=== PATIENT | male | born 1960 | race Caucasian/White ===

== ENCOUNTER 2019-06-07 12:53 | Inpatient (IN) | payer OTHER ==
[2019-06-07 13:34] VITALS: BMI 43.4
--- NOTE | 2019-06-07 14:49 | HP ---
CIWA Score - Admission Criteria OASAS Guidelines: Admission for Medically Managed Detox: Requires at least one of the followin. CIWA greater than 12 2. Seizures within the past 24 hours 3. Delirium tremens within the past 24 hours 4. Hallucinations within the past 24 hours 5. Acute intervention needed for co occurring medical disorder 6. Acute intervention needed for co occurring psychiatric disorder 7. Severe withdrawal that cannot be handled at a lower level of care (continued vomiting, continued diarrhea, abnormal vital signs) requiring intravenous medication and/or fluids 8. Admitting History and Physical - Admission Chief Complaint: "I was sent here from [facility] for Rehab." History of Present Illness: 58 year old male with history of alcohol dependence, marijuana, crack use disorders. He is being referred to rehab from [facility] after a stay from 05/09/19 till present due to decompensation psychiatrically. He now admits that he was non-compliant with psychiatric medications and that caused him to relapse and start using drugs again. The last date of use of alcohol, crack and marijuuana was 05/09/19. See history from prior hospital. Psych:schizoaffective disorder Meds: See medication reconciliation this was confirmed from prior hospital as adjustments were made there and he was stable on those medications and doses. Patient lives in [facility] but needs structured environment to remain abstinent and gain knowledge to prevent relapse. He also had previous detoxes but has relapsed multiple times. History Source: Patient Limitations to Obtaining History: No Limitations - Past Medical History Psych: Yes: Schizophrenia, Other (schizoaffective disorder) - Past Surgical History Past Surgical History: Yes: None - Advance Directives Advance Directives: No: Living Will, Health Care Proxy, DNR - Smoking History Smoking history: Never smoked Have you smoked in the past 12 months: No - Alcohol/Substance Use Hx Alcohol Use: Yes (used to 1/2 pint on weekends) History of Substance Use: reports: None - Social History Usual Living Arrangement: Yes: Assisted Living Do you think of yourself as: Straight/Heterosexual ADL: Independent Occupation: disabled now psychiatrically History of Recent Travel: No Admission [facility] Allergies/Adverse Reactions: Allergies Allergy/AdvReac Type Severity Reaction Status Date / Time Penicillins Allergy Verified 06/07/19 13:11 - Ebola screening Have you traveled outside of the country in the last 21 days: No Have you had contact with anyone from an Ebola affected area: No Have you been sick,other than usual withdrawal symptoms: No Do you have a fever: No - Review of Systems Constitutional: No Symptoms Reported EENT: reports: No Symptoms Reported Respiratory: reports: No Symptoms reported Cardiac: reports: No Symptoms Reported GI: reports: No Symptoms Reported : reports: No Symptoms Reported Musculoskeletal: reports: Other (right ankle aching and not new complaint. right hip pain on walking is painful) Integumentary: reports: No Symptoms Reported Neuro: reports: No Symptoms reported Endocrine: reports: No Symptoms Reported Hematology: reports: No Symptoms Reported Psychiatric: reports: Judgement Intact, Mood/Affect Appropiate, Orientated x3 Other Systems: Reviewed and Negative Patient History - Patient Medical History Hx Anemia: No Hx Asthma: No Hx Chronic Obstructive Pulmonary Disease (COPD): No Hx Cancer: No Hx Cardiac Disorders: No Hx Congestive Heart Failure: No Hx Hypertension: Yes Hx Hypercholesterolemia: No Hx Pacemaker: No HX Cerebrovascular Accident: No Hx Seizures: No Hx Dementia: No Hx Diabetes: No Hx Gastrointestinal Disorders: No Hx Liver Disease: Yes (fatty liver?) Hx Genitourinary Disorders: No Hx Sexually Transmitted Disorders: No Hx Renal Disease (ESRD): No Hx Thyroid Disease: No Hx Human Immunodeficiency Virus (HIV): No Hx Hepatitis C: No Hx Depression: No Hx Suicide Attempt: No Hx Bipolar Disorder: No Hx Schizophrenia: Yes Other Medical History: sickle cell trait and sleep apnea disorder - Smoking Cessation Smoking history: Never smoked Hx Chewing Tobacco Use: No Initiated information on smoking cessation: No - Substances abused Marijuana/Hashish Substance route: Smoking Frequency: 1-3 times last 30 days Amount used: $10 Age of first use: 18 Date of last use: 05/01/19 Alcohol Substance route: Oral Frequency: Daily Amount used: 1 pint of rum Age of first use: 22 Date of last use: 05/17/19 Crack Substance route: Smoking Frequency: Daily Amount used: $500 Age of first use: 18 Date of last use: 05/17/19 Admission Physical Exam BHS - Vital Signs Vital Signs: Vital Signs - 24 hr 06/07/19 13:10 Temperature 97.7 F Pulse Rate 74 Respiratory 20 Rate Blood Pressure 117/71 - Physical General Appearance: Yes: No Apparent Distress HEENTM: Yes: EOMI, Hearing grossly Normal, Normal ENT Inspection, Normocephalic , Normal Voice, JEREMY, Pharynx Normal, Tm's normal Respiratory: Yes: Chest Non-Tender, Lungs Clear, Normal Breath Sounds, No Respiratory Distress, No Accessory Muscle Use Neck: Yes: No masses,lesions,Nodules, Supple, Trachea in good position Breast: Yes: Within Normal Limits Cardiology: Yes: Regular Rhythm, Regular Rate, S1, S2 Abdominal: Yes: Normal Bowel Sounds, Non Tender, Soft, Protuberent Genitourinary: Yes: Within Normal Limits Back: Yes: Normal Inspection Musculoskeletal: Yes: full range of Motion, Gait Steady, Pelvis Stable Extremities: Yes: Normal Capillary Refill, Normal Inspection, Normal Range of Motion, Non-Tender Neurological: Yes: soil 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 II-XII NML intact, Fully Oriented, Alert, Motor Strength 5/5, Normal Mood/Affect, Normal Response Integumentary: Yes: Normal Color, Warm Lymphatic: Yes: Within Normal Limits - Diagnostic (1) Morbid obesity Current Visit: Yes Status: Acute (2) Hypertension Current Visit: Yes Status: Acute (3) Schizoaffective disorder Current Visit: Yes Status: Acute (4) Arthritis Current Visit: Yes Status: Acute (5) Alcohol use disorder Current Visit: Yes Status: Acute (6) Cannabis use disorder, mild, abuse Current Visit: Yes Status: Acute (7) Cocaine use disorder Current Visit: Yes Status: Acute Cleared for Admission S - Detox or Rehab [facility] Level of Care: Medically Supervised Detox Regimen/Protocol: Not Applicable Claeared for Rehab Admission: Yes Screened but not Admitted - Documentation of Visit Screened but not Admitted: No Breathalyzer - Breathalyzer Breathalyzer: 0 (transfer from other hospital) Urine Drug Screen - Test Device Lot number: [id number] Expiration date: 12/26/20 - Control Is test valid?: Yes - Results Drug screen NEGATIVE: Yes Inpatient Rehab Admission - Rehab Decision to Admit Inpatient rehab admission?: Yes - Initial Determination Are CD services needed?: Yes Free of communicable disease: Yes Not in need of hospitalization: Yes - Rehab Admission Criteria Previous failed treatment: Yes Poor recovery environment: Yes Comorbidities: Yes Lacks judgement: Yes Patient is meeting Inpatient Rehab admission criteria:: Yes
[2019-06-07] MEDS ORDERED: MENTHOL/PHENOL 1 EACH UD MM PRN (15:10)
[2019-06-07] MEDS ORDERED: ALBUTEROL SO4 HFA INHALER IH PRN (15:10)
[2019-06-07] MEDS ORDERED: guaiFENesin 200 MG/10 ML 10 ML UNIT-DOSE CUPS PO PRN (15:10)
[2019-06-07] MEDS ORDERED: IBUPROFEN 400 MG TABLET (FP) PO PRN (15:10)
[2019-06-07] MEDS ORDERED: ACETAMINOPHEN 325 MG TABLET (FP) PO PRN (15:10)
[2019-06-07] MEDS ORDERED: MAGNESIUM CITRATE 300 ML BOTTLE PO PRN (15:10)
[2019-06-07] MEDS ORDERED: MAGNESIUM HYDROX 2400MG/30ML ORAL SUSPENSION 30 ML CUP PO PRN (15:10)
[2019-06-07] MEDS ORDERED: P-EPHED 60MG/TRIPROLIDI 2.5MG TABLET PO PRN (15:10)
[2019-06-07] MEDS ORDERED: MAG HYDROX/AL HYDROX/SIMETH 30 ML UNIT-DOSE CUP PO PRN (15:10)
[2019-06-07] MEDS ORDERED: LOPERAMIDE HCL 2 MG CAPSULE PO PRN (15:10)
[2019-06-07] MEDS ORDERED: HEPARIN NA (PORCINE) 5,000 UNITS/ML 1ML VIAL SQ SCH (15:15)
--- NOTE | 2019-06-07 16:17 | PN ---
[facility] Progress Note Note: Newly admitted patient re: hx of schizoaffective of psych admission to [facility] d/t non-compliance with psych meds, psych consult place and lithium levels ordered. Heparin order clarified with admitting provider re: d/c order.
[2019-06-07] MEDS: THIAMINE HCL 100 MG TABLET (FP) PO SCH (21:05)
[2019-06-07] MEDS: MOMETASONE FUROATE 220 MCG/IH INHALER IH SCH (21:05)
[2019-06-07] MEDS ORDERED: OLANZapine 5 MG TABLET ONE (21:09)
[2019-06-07] MEDS ORDERED: OLANZapine 10 MG TABLET ONE (21:09)
[2019-06-07] MEDS: OLANZAPINE 20 MG, OLANZAPINE 5 MG PO SCH (21:09)
[2019-06-07] MEDS: DOCUSATE SODIUM 100 MG CAPSULE (FP) PO SCH (21:10)
[2019-06-07] MEDS: GABAPENTIN 100 MG CAPSULE PO SCH (21:10)
[2019-06-07] MEDS: DIVALPROEX SODIUM 500 MG TABLET E.C. PO SCH (21:10)
[2019-06-07] MEDS ORDERED: LITHIUM CARBONATE 150 MG CAPSULE PO SCH (22:00)
[2019-06-07] MEDS ORDERED: OLANZAPINE 25 MG PO SCH (22:00)
[2019-06-07] MEDS ORDERED: LITHIUM CARBONATE 300 MG CAPSULE (FP) PO SCH (22:00)
[2019-06-07] MEDS ORDERED: LITHIUM CARBONATE 150 MG CAPSULE PO ONE (22:45)
[2019-06-08] MEDS: DOCUSATE SODIUM 100 MG CAPSULE (FP) PO SCH ×3 (06:27→21:11)
[2019-06-08] MEDS: GABAPENTIN 100 MG CAPSULE PO SCH ×3 (06:27→21:11)
[2019-06-08] MEDS: LITHIUM CARBONATE 300 MG, LITHIUM CARBONATE 150 MG PO SCH ×3 (08:15→21:10)
--- NOTE | 2019-06-08 09:01 | EKG ---
Test Reason : Blood Pressure : / mmHG Vent. Rate : 071 BPM Atrial Rate : 071 BPM P-R Int : 180 ms QRS Dur : 094 ms QT Int : 402 ms P-R-T Axes : 062 031 039 degrees QTc Int : 436 ms NORMAL SINUS RHYTHM NORMAL ECG NO PREVIOUS ECGS AVAILABLE Confirmed by HAMLET TRUJILLO MD ([id number]) on 06/08/2019 9:01:05 AM Referred By: Confirmed By:HAMLET TRUJILLO MD
--- NOTE | 2019-06-08 09:19 | CONSULT ---
[facility] Psychiatric Consult - Data Date of interview: 06/08/19 Admission source: [facility] Identifying data: Patient is a 58 year old single male, without children, unemployed, domiciled, and is supported by SSI/SSD. This is one of multiple admissions for patient. Patient admitted to for alcohol, marijuana, and cocaine dependence. Substance Abuse History: Smoking Cessation. Smoking history: Never smoked. Hx Chewing Tobacco Use: No. Initiated information on smoking cessation: No. - Substances abused. Marijuana/Hashish. Substance route: Smoking. Frequency : 1-3 times last 30 days. Amount used: $10. Age of first use: 18. Date of last use: 05/01/19. Alcohol. Substance route: Oral. Frequency: Daily. Amount used: 1 pint of rum. Age of first use: 22. Date of last use: 05/17/19. Crack. Substance route: Smoking. Frequency: Daily. Amount used: $500. Age of first use: 18. Date of last use: 05/17/19 Medical History: hypertension, sickle cell trait, sleep apnea disorder Psychiatric History: Patient's first psychiatric contact was in 1978 after he became hostile in high school secondary to smoking marijuana. He was admitted to [facility] for 2 months diagnosed with schizoaffective disorder and prescribed haldol, thorazine and other psychotropic agents. Mr. Aguiar reports history of multiple hospitalizations at various institutions including but not limited to [facility], [facility], [facility] and facilities in [place], [place]. Mr. Aguiar reports being admitted for four years at [facility] from [id number] (discharged in March of 2019 ). Two weeks after his admission he decompensated and was admitted to [facility]. Patient unable to recall history of psychotic symptoms. Only able to recall mood instability and hostile behavior. As per paper work from [facility] patient presented as disorganized and exhibiting incoherent speech (word salad), and visual hallucinations of seeing "profet Mohammad". 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 Patient was discharged from [facility] with a prescription of Zyprexa 25mg HS + Depakote 1500mg BID + [place] 450mg TID. Diagnosis of schizoaffective disorder bioplar type. Mr. Aguiar reports a poor history of compliance to outpatient psychiatric treatment which has resulted in multiple psychiatric hospitalizations. Patient is not currently receiving outpatient psychiatric care. [facility] from [facility] but instead was admitted to rehab at current facility. He is now seeking placement at a [facility] upon discharge. Patient denies history of suicide attempt but does report history of self mutilation behavior by cutting as a way to seek attention. At present patient denies suicidal/homicidal ideation, auditory/visual hallucination. No psychosis noted. Physical/Sexual Abuse/Trauma History: denies. Mental Status Exam - Mental Status Exam Alert and Oriented to: Time, Place, Person Cognitive Function: Good Patient Appearance: Well Groomed Mood: Withdrawn Affect: Appropriate Patient Behavior: Fatigued, Appropriate, Cooperative Speech Pattern: Appropriate Voice Loudness: Normal Thought Process: Goal Oriented Thought Disorder: Not Present Hallucinations: Denies Suicidal Ideation: Denies Homicidal Ideation: Denies Insight/Judgement: Poor Sleep: Fair Appetite: Fair Muscle strength/Tone: Normal Gait/Station: Normal Psychiatric Findings - Problem List ([place] 1, 2,3) (1) Alcohol use disorder Current Visit: Yes Status: Acute (2) Cannabis use disorder, mild, abuse Current Visit: Yes Status: Acute (3) Cocaine use disorder Current Visit: Yes Status: Acute (4) Schizoaffective disorder Current Visit: Yes Status: Chronic Qualifiers: Schizoaffective disorder type: bipolar Qualified Code(s): F25.0 - Schizoaffective disorder, bipolar type - Initial Treatment Plan Initial Treatment Plan: Psychoeducation provided. Rehab in progress. Will continue medications ordered by Dr. Gaitan: Zyprexa 25mg HS + Depakote 1500mg BID + [place] 450mg TID + Gabapentin 100mg TID. Lithum and depakote level ordered. Results pending. Benefits and side effects discussed. Verbal consent given.
[2019-06-08] MEDS: PRENATAL VITAMINS W/ FOLIC ACID TABLET (FP) PO SCH (09:58)
[2019-06-08] MEDS: MOMETASONE FUROATE 220 MCG/IH INHALER IH SCH ×2 (09:58→21:10)
[2019-06-08] MEDS: DIVALPROEX SODIUM 500 MG TABLET E.C. PO SCH ×2 (09:58→21:11)
[2019-06-08 10:08] LABS: HEMATOCRIT 36.1 % (35.4-49); HEMOGLOBIN 11.8 GM/dL (11.7-16.9); MCHC 32.7 g/dl (32.0-35.9); MEAN CELL VOLUME 94.8 fl (80-96); MEAN PLT VOLUME 8.9 fl (7.5-11.1); PLATELET COUNT 218 K/MM3 (134-434); RBC 3.81 M/mm3 (4.00-5.60); RDW 13.5 % (11.9-15.9); WHITE BLOOD COUNT 7.9 K/mm3 (4.0-10.0)
[2019-06-08 10:24] LABS: BILIRUBIN,TOTAL 0.3 mg/dL (0.2-1); BLOOD UREA NITROGEN 10.8 mg/dL (7-18); CALCIUM 9.4 mg/dL (8.5-10.1); CREATININE 0.9 mg/dL (0.55-1.3); POTASSIUM 4.5 mmol/L (3.5-5.1); TOT PROT 6.9 g/dl (6.4-8.2)
[2019-06-08] MEDS ORDERED: OLANZapine 10 MG TABLET ONE (19:49)
[2019-06-08] MEDS ORDERED: OLANZapine 5 MG TABLET ONE (19:49)
[2019-06-08] MEDS: OLANZAPINE 20 MG, OLANZAPINE 5 MG PO SCH (21:10)
[2019-06-08] MEDS: THIAMINE HCL 100 MG TABLET (FP) PO SCH (21:11)
[2019-06-08 22:05] LABS: URINE APPEARANCE CLEAR; URINE BILIRUBIN NEGATIVE (NEGATIVE); URINE COLOR YELLOW; URINE GLUCOSE (UA) NEGATIVE (NEGATIVE); URINE KETONE NEGATIVE (NEGATIVE); URINE LEUK ESTERASE NEGATIVE (NEGATIVE); URINE NITRITE NEGATIVE (NEGATIVE); URINE PROTEIN NEGATIVE (NEGATIVE); URINE UROBILINOGEN 0.2 mg/dL (0.2-1.0)
[2019-06-09] MEDS: GABAPENTIN 100 MG CAPSULE PO SCH ×3 (06:09→21:05)
[2019-06-09] MEDS: LITHIUM CARBONATE 300 MG, LITHIUM CARBONATE 150 MG PO SCH ×3 (06:10→21:05)
[2019-06-09] MEDS: DOCUSATE SODIUM 100 MG CAPSULE (FP) PO SCH ×3 (06:10→21:08)
[2019-06-09] MEDS: PRENATAL VITAMINS W/ FOLIC ACID TABLET (FP) PO SCH (09:34)
[2019-06-09] MEDS: DIVALPROEX SODIUM 500 MG TABLET E.C. PO SCH ×2 (09:34→21:04)
[2019-06-09] MEDS: MOMETASONE FUROATE 220 MCG/IH INHALER IH SCH ×2 (09:35→21:07)
[2019-06-09] MEDS ORDERED: OLANZapine 10 MG TABLET ONE (20:51)
[2019-06-09] MEDS ORDERED: OLANZapine 5 MG TABLET ONE (20:51)
[2019-06-09] MEDS: THIAMINE HCL 100 MG TABLET (FP) PO SCH (21:06)
[2019-06-09] MEDS: OLANZAPINE 20 MG, OLANZAPINE 5 MG PO SCH (21:07)
[2019-06-10] MEDS: GABAPENTIN 100 MG CAPSULE PO SCH ×3 (06:15→21:12)
[2019-06-10] MEDS: DOCUSATE SODIUM 100 MG CAPSULE (FP) PO SCH ×3 (06:15→21:12)
[2019-06-10] MEDS: LITHIUM CARBONATE 300 MG, LITHIUM CARBONATE 150 MG PO SCH ×3 (06:15→21:13)
[2019-06-10] MEDS: PRENATAL VITAMINS W/ FOLIC ACID TABLET (FP) PO SCH (09:58)
[2019-06-10] MEDS: MOMETASONE FUROATE 220 MCG/IH INHALER IH SCH ×2 (10:01→21:11)
[2019-06-10] MEDS: DIVALPROEX SODIUM 500 MG TABLET E.C. PO SCH ×2 (12:59→21:12)
[2019-06-10] MEDS ORDERED: OLANZapine 10 MG TABLET ONE (20:19)
[2019-06-10] MEDS ORDERED: OLANZapine 5 MG TABLET ONE (20:19)
[2019-06-10] MEDS: OLANZAPINE 20 MG, OLANZAPINE 5 MG PO SCH (21:11)
[2019-06-10] MEDS: THIAMINE HCL 100 MG TABLET (FP) PO SCH (21:12)
[2019-06-11] MEDS: LITHIUM CARBONATE 300 MG, LITHIUM CARBONATE 150 MG PO SCH ×3 (06:18→21:12)
[2019-06-11] MEDS: DOCUSATE SODIUM 100 MG CAPSULE (FP) PO SCH ×3 (06:18→21:12)
[2019-06-11] MEDS: GABAPENTIN 100 MG CAPSULE PO SCH ×3 (06:19→21:12)
[2019-06-11] MEDS: MOMETASONE FUROATE 220 MCG/IH INHALER IH SCH ×2 (10:03→21:10)
[2019-06-11] MEDS: PRENATAL VITAMINS W/ FOLIC ACID TABLET (FP) PO SCH (10:04)
[2019-06-11] MEDS: DIVALPROEX SODIUM 500 MG TABLET E.C. PO SCH ×2 (10:04→21:11)
[2019-06-11] MEDS ORDERED: OLANZapine 10 MG TABLET ONE (19:40)
[2019-06-11] MEDS ORDERED: OLANZapine 5 MG TABLET ONE (19:40)
[2019-06-11] MEDS: THIAMINE HCL 100 MG TABLET (FP) PO SCH (21:10)
[2019-06-11] MEDS: MELATONIN 5 MG TABLETS PO PRN (21:11)
[2019-06-11] MEDS: OLANZAPINE 20 MG, OLANZAPINE 5 MG PO SCH (21:11)
[2019-06-12] MEDS: GABAPENTIN 100 MG CAPSULE PO SCH ×3 (06:21→21:04)
[2019-06-12] MEDS: DOCUSATE SODIUM 100 MG CAPSULE (FP) PO SCH ×3 (06:21→21:04)
[2019-06-12] MEDS: LITHIUM CARBONATE 300 MG, LITHIUM CARBONATE 150 MG PO SCH ×3 (06:21→21:08)
--- NOTE | 2019-06-12 10:55 | PN ---
[facility] Progress Note Note: Pt is a 58 y/o male with a hx of TREMAINE-alcohol,crack/cocaine,marijuana admitted to rehab from [facility]. Pt reports he was discharged from [facility] same day psychiatric unit for mental illness. Pt reports last used these drugs same day going into the hospital. PMHx of Chronic Arthritis, Chronic right Hip pain, HTN,Obesity. Psych Hx Schizoaffective Disorder. Pt reports he has no current primary care provider but goes to [facility] for medical care when needed. Vital Signs - 24 hr 06/12/19 06/12/19 00:30 07:10 Temperature 97.7 F Pulse Rate 62 Respiratory 18 18 Rate Blood Pressure 137/87 Laboratory Tests 06/08/19 06/08/19 06/08/19 07:15 07:15 07:15 WBC 7.9 RBC 3.81 L Hgb 11.8 Hct 36.1 MCV 94.8 MCH 31.0 MCHC 32.7 RDW 13.5 Plt Count 218 MPV 8.9 Sodium 142 Potassium 4.5 Chloride 108 H Carbon Dioxide 29 Anion Gap 5 L BUN 10.8 Creatinine 0.9 Est GFR (CKD-EPI)AfAm 109.50 Est GFR (CKD-EPI)NonAf 94.48 Random Glucose 74 Calcium 9.4 Total Bilirubin 0.3 AST 13 L ALT 17 Alkaline Phosphatase 51 Total Protein 6.9 Albumin 3.0 L Urine Color Urine Appearance Urine pH Ur Specific [place] Urine Protein Urine Glucose (UA) Urine Ketones Urine Blood Urine Nitrite Urine Bilirubin Urine Urobilinogen Ur Leukocyte Esterase Valproic Acid [place] RPR Titer Nonreactive 06/08/19 06/08/19 06/08/19 07:15 07:15 10:30 WBC RBC Hgb Hct MCV MCH MCHC RDW Plt Count MPV Sodium Potassium Chloride Carbon Dioxide Anion Gap BUN Creatinine Est GFR (CKD-EPI)AfAm Est GFR (CKD-EPI)NonAf Random Glucose Calcium Total Bilirubin AST ALT Alkaline Phosphatase Total Protein Albumin Urine Color Yellow Urine Appearance Clear Urine pH 8.0 Ur Specific [place] 1.007 L Urine Protein Negative Urine Glucose (UA) Negative Urine Ketones Negative Urine Blood Negative Urine Nitrite Negative Urine Bilirubin Negative Urine Urobilinogen 0.2 Ur Leukocyte Esterase Negative Valproic Acid 64.8 [place] 0.6 RPR Titer Alert o x 3,denies s/h/i nad oob ambulating with steady gait Extremities/skin:slight non-pitting edema; dark skin discolorations to ankle area; dry scaly soles of feet. A/P New rehab pt Maintain safety follow up with psych consult as requested for medication review and possible restart of Cogentin. increase po fluids.
[2019-06-12] MEDS: DIVALPROEX SODIUM 500 MG TABLET E.C. PO SCH ×2 (11:38→21:04)
[2019-06-12] MEDS: PRENATAL VITAMINS W/ FOLIC ACID TABLET (FP) PO SCH (11:39)
[2019-06-12] MEDS: MOMETASONE FUROATE 220 MCG/IH INHALER IH SCH ×2 (11:40→21:04)
[2019-06-12] MEDS: LIDOCAINE 5% TOPICAL PATCH TP SCH (13:44)
[2019-06-12] MEDS ORDERED: OLANZapine 10 MG TABLET ONE (20:19)
[2019-06-12] MEDS ORDERED: OLANZapine 5 MG TABLET ONE (20:19)
[2019-06-12] MEDS: LIDOCAINE PATCH REMOVAL MC SCH (21:05)
[2019-06-12] MEDS: THIAMINE HCL 100 MG TABLET (FP) PO SCH (21:05)
[2019-06-12] MEDS: OLANZAPINE 20 MG, OLANZAPINE 5 MG PO SCH (21:05)
[2019-06-12] MEDS: METHYL SALICYLATE/MENTHOL OINT 30 GM TUBE TP SCH (21:06)
[2019-06-13] MEDS: GABAPENTIN 100 MG CAPSULE PO SCH ×3 (07:13→21:13)
[2019-06-13] MEDS: LITHIUM CARBONATE 300 MG, LITHIUM CARBONATE 150 MG PO SCH ×3 (07:14→21:12)
[2019-06-13] MEDS: DOCUSATE SODIUM 100 MG CAPSULE (FP) PO SCH ×3 (07:14→21:13)
[2019-06-13] MEDS: MOMETASONE FUROATE 220 MCG/IH INHALER IH SCH ×2 (10:48→21:12)
[2019-06-13] MEDS: LIDOCAINE 5% TOPICAL PATCH TP SCH (10:49)
[2019-06-13] MEDS: DIVALPROEX SODIUM 500 MG TABLET E.C. PO SCH ×2 (10:49→21:12)
[2019-06-13] MEDS: PRENATAL VITAMINS W/ FOLIC ACID TABLET (FP) PO SCH (10:49)
[2019-06-13] MEDS ORDERED: OLANZapine 10 MG TABLET ONE (19:21)
[2019-06-13] MEDS ORDERED: OLANZapine 5 MG TABLET ONE (19:21)
[2019-06-13] MEDS: OLANZAPINE 20 MG, OLANZAPINE 5 MG PO SCH (21:12)
[2019-06-13] MEDS: THIAMINE HCL 100 MG TABLET (FP) PO SCH (21:13)
[2019-06-13] MEDS: METHYL SALICYLATE/MENTHOL OINT 30 GM TUBE TP SCH (21:14)
[2019-06-13] MEDS: LIDOCAINE PATCH REMOVAL MC SCH (21:14)
[2019-06-14] MEDS: DOCUSATE SODIUM 100 MG CAPSULE (FP) PO SCH ×3 (06:24→22:16)
[2019-06-14] MEDS: LITHIUM CARBONATE 300 MG, LITHIUM CARBONATE 150 MG PO SCH ×3 (06:24→22:17)
[2019-06-14] MEDS: GABAPENTIN 100 MG CAPSULE PO SCH ×3 (06:24→22:17)
[2019-06-14] MEDS: DIVALPROEX SODIUM 500 MG TABLET E.C. PO SCH ×2 (10:19→22:16)
[2019-06-14] MEDS: LIDOCAINE 5% TOPICAL PATCH TP SCH (10:19)
[2019-06-14] MEDS: PRENATAL VITAMINS W/ FOLIC ACID TABLET (FP) PO SCH (10:19)
[2019-06-14] MEDS: MOMETASONE FUROATE 220 MCG/IH INHALER IH SCH ×2 (12:13→22:16)
[2019-06-14] MEDS ORDERED: OLANZapine 5 MG TABLET ONE (20:07)
[2019-06-14] MEDS ORDERED: OLANZapine 10 MG TABLET ONE (20:07)
[2019-06-14] MEDS: METHYL SALICYLATE/MENTHOL OINT 30 GM TUBE TP SCH (22:16)
[2019-06-14] MEDS: OLANZAPINE 20 MG, OLANZAPINE 5 MG PO SCH (22:17)
[2019-06-14] MEDS: THIAMINE HCL 100 MG TABLET (FP) PO SCH (22:17)
[2019-06-14] MEDS: LIDOCAINE PATCH REMOVAL MC SCH (22:17)
[2019-06-15] MEDS: GABAPENTIN 100 MG CAPSULE PO SCH ×3 (06:15→21:03)
[2019-06-15] MEDS: LITHIUM CARBONATE 300 MG, LITHIUM CARBONATE 150 MG PO SCH ×3 (06:15→21:02)
[2019-06-15] MEDS: DOCUSATE SODIUM 100 MG CAPSULE (FP) PO SCH ×3 (06:15→21:03)
[2019-06-15] MEDS: MOMETASONE FUROATE 220 MCG/IH INHALER IH SCH ×2 (10:03→21:02)
[2019-06-15] MEDS: DIVALPROEX SODIUM 500 MG TABLET E.C. PO SCH ×2 (10:03→21:03)
[2019-06-15] MEDS: LIDOCAINE 5% TOPICAL PATCH TP SCH (10:04)
[2019-06-15] MEDS: PRENATAL VITAMINS W/ FOLIC ACID TABLET (FP) PO SCH (10:04)
[2019-06-15] MEDS ORDERED: OLANZapine 10 MG TABLET ONE (20:01)
[2019-06-15] MEDS ORDERED: OLANZapine 5 MG TABLET ONE (20:01)
[2019-06-15] MEDS: OLANZAPINE 20 MG, OLANZAPINE 5 MG PO SCH (21:02)
[2019-06-15] MEDS: THIAMINE HCL 100 MG TABLET (FP) PO SCH (21:03)
[2019-06-15] MEDS: METHYL SALICYLATE/MENTHOL OINT 30 GM TUBE TP SCH (21:04)
[2019-06-15] MEDS: LIDOCAINE PATCH REMOVAL MC SCH (21:04)
[2019-06-16] MEDS: LITHIUM CARBONATE 300 MG, LITHIUM CARBONATE 150 MG PO SCH ×3 (06:00→21:17)
[2019-06-16] MEDS: GABAPENTIN 100 MG CAPSULE PO SCH ×3 (06:01→21:17)
[2019-06-16] MEDS: DOCUSATE SODIUM 100 MG CAPSULE (FP) PO SCH ×3 (06:01→21:15)
[2019-06-16] MEDS: MOMETASONE FUROATE 220 MCG/IH INHALER IH SCH ×2 (09:44→21:14)
[2019-06-16] MEDS: DIVALPROEX SODIUM 500 MG TABLET E.C. PO SCH ×2 (09:44→21:16)
[2019-06-16] MEDS: LIDOCAINE 5% TOPICAL PATCH TP SCH (09:45)
[2019-06-16] MEDS: PRENATAL VITAMINS W/ FOLIC ACID TABLET (FP) PO SCH (09:45)
[2019-06-16] MEDS ORDERED: OLANZapine 10 MG TABLET ONE (19:40)
[2019-06-16] MEDS ORDERED: OLANZapine 5 MG TABLET ONE (19:41)
[2019-06-16] MEDS: METHYL SALICYLATE/MENTHOL OINT 30 GM TUBE TP SCH (21:14)
[2019-06-16] MEDS: OLANZAPINE 20 MG, OLANZAPINE 5 MG PO SCH (21:16)
[2019-06-16] MEDS: LIDOCAINE PATCH REMOVAL MC SCH (21:17)
[2019-06-16] MEDS: MELATONIN 5 MG TABLETS PO PRN (21:18)
[2019-06-16] MEDS: THIAMINE HCL 100 MG TABLET (FP) PO SCH (21:18)
[2019-06-17] MEDS: LITHIUM CARBONATE 300 MG, LITHIUM CARBONATE 150 MG PO SCH ×3 (06:29→21:13)
[2019-06-17] MEDS: GABAPENTIN 100 MG CAPSULE PO SCH ×3 (06:29→21:13)
[2019-06-17] MEDS: DOCUSATE SODIUM 100 MG CAPSULE (FP) PO SCH ×3 (06:29→21:13)
[2019-06-17] MEDS: PRENATAL VITAMINS W/ FOLIC ACID TABLET (FP) PO SCH (09:54)
[2019-06-17] MEDS: LIDOCAINE 5% TOPICAL PATCH TP SCH (09:54)
[2019-06-17] MEDS: MOMETASONE FUROATE 220 MCG/IH INHALER IH SCH ×2 (09:55→21:12)
[2019-06-17] MEDS: DIVALPROEX SODIUM 500 MG TABLET E.C. PO SCH ×2 (13:02→21:14)
[2019-06-17] MEDS ORDERED: OLANZapine 10 MG TABLET ONE (20:20)
[2019-06-17] MEDS ORDERED: OLANZapine 5 MG TABLET ONE (20:20)
[2019-06-17] MEDS: THIAMINE HCL 100 MG TABLET (FP) PO SCH (21:13)
[2019-06-17] MEDS: OLANZAPINE 20 MG, OLANZAPINE 5 MG PO SCH (21:13)
[2019-06-17] MEDS: METHYL SALICYLATE/MENTHOL OINT 30 GM TUBE TP SCH (21:15)
[2019-06-17] MEDS: LIDOCAINE PATCH REMOVAL MC SCH (21:23)
[2019-06-18] MEDS: DOCUSATE SODIUM 100 MG CAPSULE (FP) PO SCH ×3 (06:11→21:17)
[2019-06-18] MEDS: GABAPENTIN 100 MG CAPSULE PO SCH ×3 (06:11→21:17)
[2019-06-18] MEDS: LITHIUM CARBONATE 300 MG, LITHIUM CARBONATE 150 MG PO SCH ×3 (06:12→21:16)
[2019-06-18] MEDS: PRENATAL VITAMINS W/ FOLIC ACID TABLET (FP) PO SCH (10:18)
[2019-06-18] MEDS: DIVALPROEX SODIUM 500 MG TABLET E.C. PO SCH ×2 (10:18→21:15)
[2019-06-18] MEDS: MOMETASONE FUROATE 220 MCG/IH INHALER IH SCH ×2 (10:20→21:15)
[2019-06-18] MEDS: LIDOCAINE 5% TOPICAL PATCH TP SCH (10:21)
[2019-06-18] MEDS ORDERED: OLANZapine 10 MG TABLET ONE (20:23)
[2019-06-18] MEDS ORDERED: OLANZapine 5 MG TABLET ONE (20:24)
[2019-06-18] MEDS: OLANZAPINE 20 MG, OLANZAPINE 5 MG PO SCH (21:16)
[2019-06-18] MEDS: LIDOCAINE PATCH REMOVAL MC SCH (21:17)
[2019-06-18] MEDS: THIAMINE HCL 100 MG TABLET (FP) PO SCH (21:17)
[2019-06-18] MEDS: METHYL SALICYLATE/MENTHOL OINT 30 GM TUBE TP SCH (21:17)
[2019-06-19] MEDS: DOCUSATE SODIUM 100 MG CAPSULE (FP) PO SCH ×3 (06:10→21:18)
[2019-06-19] MEDS: LITHIUM CARBONATE 300 MG, LITHIUM CARBONATE 150 MG PO SCH ×3 (06:10→21:19)
[2019-06-19] MEDS: GABAPENTIN 100 MG CAPSULE PO SCH ×3 (06:11→21:18)
[2019-06-19] MEDS: DIVALPROEX SODIUM 500 MG TABLET E.C. PO SCH ×2 (10:15→21:18)
[2019-06-19] MEDS: LIDOCAINE 5% TOPICAL PATCH TP SCH (10:15)
[2019-06-19] MEDS: MOMETASONE FUROATE 220 MCG/IH INHALER IH SCH ×2 (10:15→21:18)
[2019-06-19] MEDS: PRENATAL VITAMINS W/ FOLIC ACID TABLET (FP) PO SCH (10:15)
[2019-06-19] MEDS ORDERED: OLANZapine 10 MG TABLET ONE (19:05)
[2019-06-19] MEDS ORDERED: OLANZapine 5 MG TABLET ONE (19:06)
[2019-06-19] MEDS: OLANZAPINE 20 MG, OLANZAPINE 5 MG PO SCH (21:18)
[2019-06-19] MEDS: THIAMINE HCL 100 MG TABLET (FP) PO SCH (21:18)
[2019-06-19] MEDS: METHYL SALICYLATE/MENTHOL OINT 30 GM TUBE TP SCH (21:19)
[2019-06-19] MEDS: LIDOCAINE PATCH REMOVAL MC SCH (21:19)
[2019-06-20] MEDS: GABAPENTIN 100 MG CAPSULE PO SCH ×3 (06:16→21:05)
[2019-06-20] MEDS: DOCUSATE SODIUM 100 MG CAPSULE (FP) PO SCH ×3 (06:17→21:05)
[2019-06-20] MEDS: LITHIUM CARBONATE 300 MG, LITHIUM CARBONATE 150 MG PO SCH ×3 (06:17→21:04)
[2019-06-20] MEDS: DIVALPROEX SODIUM 500 MG TABLET E.C. PO SCH ×2 (10:01→21:05)
[2019-06-20] MEDS: LIDOCAINE 5% TOPICAL PATCH TP SCH (10:01)
[2019-06-20] MEDS: PRENATAL VITAMINS W/ FOLIC ACID TABLET (FP) PO SCH (10:01)
[2019-06-20] MEDS: MOMETASONE FUROATE 220 MCG/IH INHALER IH SCH ×2 (10:02→21:04)
--- NOTE | 2019-06-20 12:40 | PN ---
[facility] Progress Note Note: Patient is scheduled for discharge tomorrow. Scripts for 30 days supply of Zyprexa 25 mg/hs, Gabapetin 100 mg/tid and 14 days supply of Depakote 1500 mg/ bid,and [place] 450 mg/tid electronically transmitted to [facility] at [address] [place], [place] [id number]
--- NOTE | 2019-06-20 14:10 | DS ---
[facility] Rehab Discharge Summary - [facility] Rehab Discharge Summary Admission Date: 06/07/19 Discharge Date: 06/20/19 - History Present History: Alcohol dependence, Cannabis dependence, Cocaine dependence Additional Comments: Pt is a 58 y/o male with a hx of TREMAINE admitted to rehab after discharging from [facility] and he is scheduled for discharge on 06/21/19. Pt reports he has primary care with [facility]. Pt has been referred to his residential providers at [facility] for follow up after discharge. Pertinent Past History: HTN(no med) Fatty liver(per H/P) Arthritis Right Ankle and Right Hip Morbid obesity Schizoaffective Disorder - Discharge Physical Exam Vital Signs: Vital Signs Temperature 97.3 F L 06/20/19 06:56 Pulse Rate 65 06/20/19 06:56 Respiratory Rate 18 06/20/19 06:56 Blood Pressure 131/88 06/20/19 06:56 O2 Sat by Pulse Oximetry (%) Pertinent Admission Physical Exam Findings: Laboratory Tests 06/08/19 06/08/19 06/08/19 07:15 07:15 07:15 WBC 7.9 RBC 3.81 L Hgb 11.8 Hct 36.1 MCV 94.8 MCH 31.0 MCHC 32.7 RDW 13.5 Plt Count 218 MPV 8.9 Sodium 142 Potassium 4.5 Chloride 108 H Carbon Dioxide 29 Anion Gap 5 L BUN 10.8 Creatinine 0.9 Est GFR (CKD-EPI)AfAm 109.50 Est GFR (CKD-EPI)NonAf 94.48 Random Glucose 74 Calcium 9.4 Total Bilirubin 0.3 AST 13 L ALT 17 Alkaline Phosphatase 51 Total Protein 6.9 Albumin 3.0 L Urine Color Urine Appearance Urine pH Ur Specific [place] Urine Protein Urine Glucose (UA) Urine Ketones Urine Blood Urine Nitrite Urine Bilirubin Urine Urobilinogen Ur Leukocyte Esterase Valproic Acid [place] RPR Titer Nonreactive 06/08/19 06/08/19 06/08/19 07:15 07:15 10:30 WBC RBC Hgb Hct MCV MCH MCHC RDW Plt Count MPV Sodium Potassium Chloride Carbon Dioxide Anion Gap BUN Creatinine Est GFR (CKD-EPI)AfAm Est GFR (CKD-EPI)NonAf Random Glucose Calcium Total Bilirubin AST ALT Alkaline Phosphatase Total Protein Albumin Urine Color Yellow Urine Appearance Clear Urine pH 8.0 Ur Specific [place] 1.007 L Urine Protein Negative Urine Glucose (UA) Negative Urine Ketones Negative Urine Blood Negative Urine Nitrite Negative Urine Bilirubin Negative Urine Urobilinogen 0.2 Ur Leukocyte Esterase Negative Valproic Acid 64.8 [place] 0.6 RPR Titer - Treatment Discharge Condition: Discharge condition good Hospital Course: Rehabilitated safely and responded well CD after care accepted Pt participated in group and individual activities - Medication Discharge Medications: Ambulatory Orders Albuterol Sulfate Inhaler - [Ventolin Hfa Inhaler -] 1 - 2 inh PO PRN PRN Gabapentin [Neurontin -] 100 mg PO Q8H 06/07/19 Heparin - 5,000 unit SQ Q8H 06/07/19 [place] Carbonate [Eskalith -] 300 mg PO TID 06/07/19 Mometasone Furoate [Asmanex] 220 mcg IH BID 06/07/19 Olanzapine [Zyprexa] 25 mg PO HS 06/07/19 Benztropine Mesylate [Cogentin -] 1 mg PO BID 06/14/19 Divalproex Sodium 1,500 mg PO BID #90 tablet. 06/20/19 Docusate Sodium [Docusate 100 mg] 300 mg PO HS #90 capsule MDD 3 06/20/19 Gabapentin [Neurontin -] 100 mg PO TID #90 capsule 06/20/19 [place] Carbonate [Eskalith -] 450 mg PO TID #90 capsule 06/20/19 Olanzapine [Zyprexa] 5 mg PO HS #30 tablet 06/20/19 Olanzapine [Zyprexa] 20 mg PO HS #30 tablet 06/20/19 Olanzapine [Zyprexa] 20 mg PO HS #30 tablet 06/20/19 - Medication-Assisted Treatment (MAT) Medication-Assisted Treatment (MAT): No - Discharge Instructions Diet, activity, other medical instructions: Diet:KATIA Activity: oob ad kwabena Other medical instructions:follow up CD aftercare at [facility]/ going back to [facility] for housing and supervision. Follow up with primary care at [facility]. - Diagnosis (1) Alcohol use disorder Current Visit: Yes Status: Chronic (2) Arthritis Current Visit: Yes Status: Chronic (3) Cannabis use disorder, mild, abuse Current Visit: Yes Status: Chronic (4) Cocaine use disorder Current Visit: Yes Status: Chronic (5) Hypertension Current Visit: Yes Status: Chronic Qualifiers: Hypertension type: essential hypertension Qualified Code(s): I10 - Essential (primary) hypertension (6) Morbid obesity Current Visit: Yes Status: Chronic - Follow-up Referral Minutes to complete discharge: 20 - AMA Did Patient Leave Against Medical Advice: No Additional Comments: Pt requests courtesy Rx for Colace and Rx Colace 300 mg po HS(pt's preference) electronically sent to [facility] for picker operator after discharge.
[2019-06-20] MEDS ORDERED: OLANZapine 5 MG TABLET ONE (20:15)
[2019-06-20] MEDS ORDERED: OLANZapine 10 MG TABLET ONE (20:15)
[2019-06-20] MEDS: THIAMINE HCL 100 MG TABLET (FP) PO SCH (21:05)
[2019-06-20] MEDS: OLANZAPINE 20 MG, OLANZAPINE 5 MG PO SCH (21:05)
[2019-06-20] MEDS: LIDOCAINE PATCH REMOVAL MC SCH (21:06)
[2019-06-20] MEDS: METHYL SALICYLATE/MENTHOL OINT 30 GM TUBE TP SCH (21:07)
[2019-06-21] MEDS: DOCUSATE SODIUM 100 MG CAPSULE (FP) PO SCH (06:13)
[2019-06-21] MEDS: GABAPENTIN 100 MG CAPSULE PO SCH (06:13)
[2019-06-21] MEDS: LITHIUM CARBONATE 300 MG, LITHIUM CARBONATE 150 MG PO SCH (06:13)
[2019-06-21 06:53] VITALS: BP 135/77; PULSE 66; TEMP 97.9
--- NOTE | 2019-06-21 09:23 | PN ---
[facility] Progress Note Note: Saw pt this morning and is discharging as scheduled. Pt also has followed up with his counselor Ms Venus Feng and all discharge instructions given to patient for follow up. Vital Signs - 24 hr 06/21/19 06/21/19 06/21/19 00:30 03:30 06:53 Temperature 97.9 F Pulse Rate 66 Respiratory 20 18 18 Rate Blood Pressure 135/77 Alert o x 3,well groomed, denies s/h/i nad oob ambulating with steady gait A/P Medically stable D/C pt today follow up with referrals as in discharge package.
[2019-06-21] MEDS: MOMETASONE FUROATE 220 MCG/IH INHALER IH SCH (09:28)
[2019-06-21] MEDS: PRENATAL VITAMINS W/ FOLIC ACID TABLET (FP) PO SCH (09:28)
[2019-06-21] MEDS: LIDOCAINE 5% TOPICAL PATCH TP SCH (09:28)
[2019-06-21] MEDS: DIVALPROEX SODIUM 500 MG TABLET E.C. PO SCH (09:28)
== END 2019-06-21 11:13 | disposition home or self-care (01) | DRG 895 ==
LOC: YASAS 12:53 → Y5N 15:08
PROVIDERS: ADMIT Neuromusculoskeletal Medicine & OMM; ATTEND Neuromusculoskeletal Medicine & OMM
PROC: HZ42ZZZ Group Counseling for Substance Abuse Treatment, Cognitive-Behavioral (ICD-10-PCS; principal; 2019-06-07)
DX: F10.20 Alcohol dependence, uncomplicated (principal); Z68.41 Body mass index [BMI] 40.0-44.9, adult; F14.10 Cocaine abuse, uncomplicated; F12.10 Cannabis abuse, uncomplicated; F25.0 Schizoaffective disorder, bipolar type; G47.39 Other sleep apnea; D57.3 Sickle-cell trait; M12.9 Arthropathy, unspecified; K76.0 Fatty (change of) liver, not elsewhere classified; E66.01 Morbid (severe) obesity due to excess calories
CPT/HCPCS: 36415; 71046-TC-FY; 80053; 80164; 80178; 81003; 85027; 86593; 93005; 93010

== ENCOUNTER 2021-09-21 12:16 | Inpatient (IN) | payer OTHER ==
[2021-09-21] MEDS ORDERED: DICYCLOMINE HCL 10 MG CAPSULE PO PRN (13:14)
[2021-09-21] MEDS ORDERED: ACETAMINOPHEN 325 MG TABLET (FP) PO PRN ×2 (13:14)
[2021-09-21] MEDS ORDERED: LOPERAMIDE HCL 2 MG CAPSULE PO PRN (13:14)
[2021-09-21] MEDS ORDERED: LORazepam 1 MG TABLET PO PRN (13:14)
[2021-09-21] MEDS ORDERED: METHOCARBAMOL 500 MG TABLET PO PRN (13:14)
[2021-09-21] MEDS ORDERED: MAG HYDROX/AL HYDROX/SIMETH 30 ML UNIT-DOSE CUP PO PRN (13:14)
[2021-09-21] MEDS ORDERED: MAGNESIUM HYDROX 2400MG/30ML ORAL SUSPENSION 30 ML CUP PO PRN (13:14)
[2021-09-21] MEDS ORDERED: MAGNESIUM CITRATE 300 ML BOTTLE PO PRN (13:14)
[2021-09-21] MEDS ORDERED: ONDANSETRON *ODT* 4 MG TABLET SL PRN (13:14)
[2021-09-21] MEDS ORDERED: BISMUTH SUBSALICYLATE 262 MG/15 ML BTL PO PRN (13:14)
[2021-09-21] MEDS ORDERED: BENZOCAINE/MENTHOL (CHLORASEPTIC ) LOZENGE MM PRN (13:14)
[2021-09-21] MEDS ORDERED: IBUPROFEN 400 MG TABLET (FP) PO PRN (13:14)
[2021-09-21] MEDS ORDERED: ALBUTEROL SO4 HFA INHALER IH PRN (13:17)
[2021-09-21 13:25] VITALS: BMI 37.4
[2021-09-21] MEDS: PRENATAL VITAMINS W/ FOLIC ACID TABLET (FP) PO SCH (15:39)
[2021-09-21] MEDS: hydrOXYzine PAMOATE 25 MG CAPSULE (FP) PO SCH ×3 (15:39→23:18)
[2021-09-21] MEDS: LORazepam 2 MG TABLET PO SCH ×2 (18:00→23:19)
[2021-09-21] MEDS: MELATONIN 5 MG TABLETS PO SCH (23:18)
[2021-09-21] MEDS: THIAMINE HCL 100 MG TABLET (FP) PO SCH (23:18)
[2021-09-21] MEDS: MOMETASONE FUROATE 220 MCG/IH INHALER IH SCH (23:19)
[2021-09-22] MEDS: LORazepam 2 MG TABLET PO SCH ×4 (06:04→22:10)
[2021-09-22] MEDS: hydrOXYzine PAMOATE 25 MG CAPSULE (FP) PO SCH ×2 (06:04→11:46)
[2021-09-22] MEDS: MOMETASONE FUROATE 220 MCG/IH INHALER IH SCH ×2 (11:29→22:11)
[2021-09-22] MEDS ORDERED: ALBUTEROL SO4 0.083% IH SOL 2.5 MG/3 ML VIAL.NEB. NEB PRN (11:30)
[2021-09-22] MEDS: PRENATAL VITAMINS W/ FOLIC ACID TABLET (FP) PO SCH (11:32)
[2021-09-22] MEDS ORDERED: ALBUTEROL SO4 HFA INHALER IH ONE (11:45)
[2021-09-22] MEDS ORDERED: OLANZapine 10 MG TABLET PO SCH (22:00)
[2021-09-22] MEDS: THIAMINE HCL 100 MG TABLET (FP) PO SCH (22:09)
[2021-09-22] MEDS: MELATONIN 5 MG TABLETS PO SCH (22:37)
[2021-09-23] MEDS: LORazepam 1 MG TABLET PO SCH ×2 (05:53→11:26)
[2021-09-23 09:13] VITALS: BP 143/98; PULSE 64; TEMP 96.7
[2021-09-23] MEDS: PRENATAL VITAMINS W/ FOLIC ACID TABLET (FP) PO SCH (11:26)
[2021-09-23] MEDS: MOMETASONE FUROATE 220 MCG/IH INHALER IH SCH (11:26)
[2021-09-24] MEDS ORDERED: LORazepam 0.5 MG TABLET PO PRN
[2021-09-24] MEDS ORDERED: LORazepam 0.5 MG TABLET PO SCH (05:00)
[2021-09-25] MEDS ORDERED: LORazepam 0.5 MG TABLET PO ONE (05:00)
== END 2021-09-23 11:31 | disposition left against medical advice (07) | DRG 894 ==
LOC: YASAS 12:16 → Y6N 15:04
PROVIDERS: ADMIT Allergy & Immunology; ATTEND Allergy & Immunology
PROC: HZ2ZZZZ Detoxification Services for Substance Abuse Treatment (ICD-10-PCS; principal; 2021-09-21)
DX: F10.230 Alcohol dependence with withdrawal, uncomplicated (principal); F14.20 Cocaine dependence, uncomplicated; F12.20 Cannabis dependence, uncomplicated; F25.0 Schizoaffective disorder, bipolar type; F31.9 Bipolar disorder, unspecified; F43.10 Post-traumatic stress disorder, unspecified; I10 Essential (primary) hypertension; J45.909 Unspecified asthma, uncomplicated; M12.9 Arthropathy, unspecified; D57.3 Sickle-cell trait; E66.9 Obesity, unspecified; Z68.37 Body mass index [BMI] 37.0-37.9, adult; R60.0 Localized edema; S09.90XA Unspecified injury of head, initial encounter; W19.XXXA Unspecified fall, initial encounter; Y92.230 Patient room in hospital as the place of occurrence of the external cause; Z99.89 Dependence on other enabling machines and devices
CPT/HCPCS: 70450-TC; 87811; C9803-CS; U0003; U0005

== ENCOUNTER 2021-09-22 06:53 | Emergency (ER) | payer OTHER ==
[2021-09-22 06:57] VITALS: BP 145/90; PULSE 82; TEMP 97.6; BMI 30.3
[2021-09-22] MEDS ORDERED: LIDOCAINE 5% TOPICAL PATCH TP ONE (08:02)
[2021-09-22] MEDS ORDERED: LIDOCAINE 5% TOPICAL PATCH ONE (08:20)
[2021-09-22] MEDS ORDERED: LIDOCAINE PATCH REMOVAL MC SCH (22:00)
== END 2021-09-22 10:54 | disposition home or self-care (01) ==
LOC: JER 06:53
DX: S09.90XA Unspecified injury of head, initial encounter (principal); M54.50 Low back pain, unspecified; W01.0XXA Fall on same level from slipping, tripping and stumbling without subsequent striking against object, initial encounter
CPT/HCPCS: 72100-TC-FY; 82962; 99285-25